=== PATIENT | male | born 1955 | race Caucasian/White ===

== ENCOUNTER 2018-04-03 16:43 | Emergency (ER) | payer BC ==
[2018-04-03] MEDS ORDERED: LIDOCAINE 1% PF 30 ML VIAL. (16:59)
[2018-04-03] MEDS: MORPHINE SULFATE 10 MG/ML VIAL. IM (17:00)
[2018-04-03] MEDS ORDERED: BUPIVACAINE 0.5% 50 ML VIAL. (17:02)
[2018-04-03] MEDS: BUPIVACAINE 0.5% 50 ML VIAL. IJ (17:03)
[2018-04-03] MEDS: DIPHTH,PERTUSS(ACELL),TET TOX 0.5 ML DISP.SYRIN. VAX IM (18:18)
[2018-04-03] MEDS: GENTAMICIN SULFATE 80 MG in IV DEXTROSE 5% 100ML 100 ML IV (18:43)
[2018-04-06 13:04] LABS: AGAP ISTAT 18 mmol/L (6-14); BUN ISTAT 18 mg/dL (8-26); CHLORIDE ISTAT 106 mmol/L (98-110); CREATININE ISTAT 1.2 mg/dL (0.5-1.4); GLUCOSE ISTAT 101 mg/dL (70-99); HEMATOCRIT ISTAT 40 % (37-52); HEMOGLOBIN ISTAT 13.6 g/dL (14-18); ION CA ISTAT 1.19 mmol/L (1.13-1.32); POTASSIUM ISTAT 3.8 mmol/L (3.5-5.0); SODIUM ISTAT 142 mmol/L (135-145); TOT CO2 ISTAT 24 mmol/L (23-32)
== END 2018-04-03 18:44 | disposition short-term general hospital (02) ==
LOC: ER 16:43
DX: S68.011A Complete traumatic metacarpophalangeal amputation of right thumb, initial encounter (principal); Z79.899 Other long term (current) drug therapy; Z79.891 Long term (current) use of opiate analgesic; W23.0XXA Caught, crushed, jammed, or pinched between moving objects, initial encounter; Y93.89 Activity, other specified; Y92.89 Other specified places as the place of occurrence of the external cause; Y99.8 Other external cause status
CPT/HCPCS: 64450; 73140; 80047; 90715; 96365; 96374; 99285-25; J0690; J1580; J3490

== ENCOUNTER → 2019-05-16 | Outpatient (CLI) | payer BC ==
[2018-04-03 18:36] VITALS: BP 153/92
--- NOTE | 2019-05-16 11:09 | KCIC ---
EXAM: 3 views left knee DATE: 05/16/2019 12:00 AM INDICATION: Left knee pain, fall, pain over patella and tibial plateau COMPARISON: No Prior FINDINGS/ IMPRESSION: 1. Prepatellar soft tissue swelling. 2. No evidence of acute fracture or dislocation. 3. No left knee joint effusion. 4. Joint spaces are preserved without significant degenerative/proliferative change. Electronically signed by: Terence Balderrama MD (05/16/2019 11:06 AM) [facility]
== END | disposition home or self-care (01) ==
LOC: KCIC 10:05
PROVIDERS: ATTEND Family Medicine
DX: M25.462 Effusion, left knee (principal)
CPT/HCPCS: 73562

== ENCOUNTER → 2019-11-27 | Outpatient (CLI) | payer BC ==
[2018-04-03 18:36] VITALS: BP 153/92
--- NOTE | 2019-11-27 16:16 | KCIC ---
CHEST PA LATERAL Clinical indications: COPD exacerbation. Fever and cough and malaise for 10 days. COMPARISON: None available. Findings: Hyperinflation is seen consistent with COPD. Bullous emphysema is seen within both upper lobes. No acute lung infiltrate or pleural effusion or pulmonary edema or lung mass or pneumothorax is seen. The heart size, pulmonary vasculature, mediastinum and both laura are unremarkable. The osseous structures appear intact. Impression: COPD. No acute radiographic abnormality is seen. Electronically signed by: Johnson Esteban MD (11/27/2019 4:13 PM) [facility] [place]
== END | disposition home or self-care (01) ==
LOC: KCIC 11:27
PROVIDERS: ATTEND Nurse Practitioner Family
DX: J44.9 Chronic obstructive pulmonary disease, unspecified (principal); J43.9 Emphysema, unspecified; R50.9 Fever, unspecified; R53.81 Other malaise
CPT/HCPCS: 71046